=== PATIENT | female | born 1945 | race Caucasian/White ===

== ENCOUNTER → 2025-01-02 13:28 | Outpatient (REF) | payer OTHER, SELFPAY | LOC: HWRCS 13:28 | PROVIDERS: ATTENDING PHYSICIAN Internal Medicine Cardiovascular Disease; FAMILY PHYSICIAN Family Medicine | DX: I10 Essential (primary) hypertension (principal); R09.02 Hypoxemia; E83.110 Hereditary hemochromatosis | CPT/HCPCS: 93306 ==